=== PATIENT | female | born 1960 | race Caucasian/White ===

== ENCOUNTER → 2020-04-12 08:16 | Outpatient (CLI) | payer BC, SELFPAY ==
[2020-04-12 09:44] LABS: Coronavirus 19 IgG Antibody Negative (Negative); Coronavirus 19 IgM Antibody Negative (Negative)
== END ==
PROVIDERS: Visit Provider Internal Medicine Gastroenterology
DX: Z01.818 Encounter for other preprocedural examination (principal); Z20.822 Contact with and (suspected) exposure to COVID-19; Z13.810 Encounter for screening for upper gastrointestinal disorder; Z12.11 Encounter for screening for malignant neoplasm of colon
CPT/HCPCS: 36415; 86328

== ENCOUNTER 2020-04-13 10:20 | Day surgery (SDC) | payer BC, SELFPAY ==
[2020-04-05 12:06] VITALS: BMI 17.2
[2020-04-13 10:37] VITALS: BP 133/48; PULSE 100; RESP 16; TEMP 36.6; O2SAT 100
--- NOTE | 2020-04-13 11:17 | P.PCN_ITS ---
[facility] Procedure Note Procedure Note:: Upper Endoscopy Procedure Report: Esophagogastroduodenoscopy with cold biopsies Endoscopost: William Ortiz II, MD Referring Physician: Emmanuel Quan MD Date of Procedure: April 13, 2020 Equipment: Olympus GIF 180 standard upper endoscope Sedation: MAC sedation Indications: Mrs. Mckoy is a 59-year-old female with chronic GERD. She has had heartburn, reflux and some painful swallowing. She also reports some early satiety and infrequent nausea. She does take lansoprazole. This is her first E GD. Procedure: Prior to the procedure, a history and physical exam was performed, and patient's medications and allergies were reviewed. The risks, benefits and alternatives of the sedation and procedure were discussed with the patient. All questions were answered and informed consent was obtained. The patient was brought to the procedure room. Patient identification and proposed procedure were verified by the physician and the nurse. The patient was placed in a left lateral decubitus position and the scope was passed under direct vision. Throughout the procedure, the patient's blood pressure, pulse, and oxygen saturations were monitored continuously. The upper GI endoscopy was accomplished without difficulty. The patient tolerated the procedure well. Findings: The scope was passed directly into the upper esophagus and advanced to the third portion of the duodenum. The post bulbar duodenum and duodenal bulb were normal with normal mucosa and conniventes. There was no scalloping and no evidence of celiac disease. The scope was withdrawn through a normal duodenal bulb and pylorus into the stomach. There was bile reflux with moderate linear reactive gastropathy of the antrum. The remainder of the body and fundus of the stomach were grossly normal. Upon retroflexion there was no hiatal hernia. 2 biopsies were taken in the antrum and along the lesser curvature for histology to rule out gastritis and/or H pylori. There was a gastric fundic gland polyp that was removed via cold biopsy. The scope was then withdrawn into the esophagus. There was no evidence of reflux esophagitis, Murphy's or Schatzki's ring. There were tertiary contractions and evidence of moderate esophageal dysmotility. The remainder of the esophageal mucosa was normal. Impression: 1. Nonerosive GERD with moderate esophageal dysmotility 2. Bile reflux with linear reactive gastropathy 3. Gastric fundic gland polyps Plan: I will follow-up the biopsies. The patient does have functional GERD. This is driven by gas pressure gradients. We will discuss additional treatment options. I will proceed with diagnostic colonoscopy. I will discuss the findings with the patient and family.
[2020-04-13 11:38] VITALS: BP 92/54; PULSE 90; RESP 18; TEMP 36.2; O2SAT 98
--- NOTE | 2020-04-13 11:38 | P.PCN_ITS ---
[facility] Procedure Note Procedure Note:: Colonoscopy Procedure Report: Colonoscopy Endoscopist: William Ortiz II, MD Referring physician: Emmanuel Quan MD Date of Procedure: April 13, 2020 Equipment: Olympus 180 variable stiffness pediatric colonoscope Sedation: MAC sedation Indication: Mrs. Mckoy is a 59-year-old female who is here for diagnostic colonoscopy. She has had longstanding bowel irregularity. She has had constipation since childhood. Over the last couple of years she has had more trouble with incomplete bowel evacuation. She also reports right lower quadrant abdominal pain. She was initially told that this may be a right ovarian cyst or adnexal issue. Her ultrasound and gynecologic work-up were unremarkable. She did have a history of endometriosis but did not have any intra- abdominal/peritoneal scar tissue from this. She did go to the emergency department at [facility] in [place] and had a CAT scan showing fecal retention. She has had some increased bloating. Her last colonoscopy was 7 years ago (Dr. Sheikh) and a small polyp was removed. She reports no weight loss, rectal bleeding or family history of colon cancer. Procedure: Prior to the procedure, a history and physical exam was performed, and patient's medications and allergies were reviewed. The risks, benefits and alternatives of the sedation and procedure were discussed with the patient. All questions were answered and informed consent was obtained. The patient was brought to the procedure room. Patient identification and proposed procedure were verified by the physician and the nurse. The patient was placed in a left lateral decubitus position and the scope was passed under direct vision. Throughout the procedure, the patient's blood pressure, pulse, and oxygen saturations were monitored continuously. The colonoscopy was accomplished without difficulty. The patient tolerated the procedure well. Findings: On digital rectal examination there was normal rectal tone. There were no external hemorrhoids. The colonoscope was introduced through the anal canal to the rectum and advanced to the cecum. The ileocecal valve and appendiceal orifice were identified. The scope was advanced a short distance into the ileum which appeared grossly normal. The scope was then withdrawn into the colon. The cecum, ascending and transverse colon and mucosa were grossly normal. There was some angulation at the hepatic flexure syndrome suggestive of hepatic flexure syndrome. There were scattered diverticuli throughout the colon but more predominantly in the descending and sigmoid colon (LEFT colon). The rectum itself was normal. Upon retroflexion within the rectum there were grade 1 internal hemorrhoids. The preparation was excellent throughout with Eckley Preparation Score of 9. The cecal time was 12 minutes. Impression: 1. Pandiverticulosis 2. 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 Grade 1 internal hemorrhoids Plan: I will discussed the findings with the patient and family and recommend dietary measures and treatment options (promotility therapy (Zelnorm or Motegrity) versus fiber bowel regimen or both). The patient will not require screening/surveillance colonoscopy again for 10 years by ACS guidelines.
[2020-04-13 11:48] VITALS: BP 105/59; PULSE 91; RESP 18; O2SAT 97
[2020-04-13 12:00] VITALS: BP 94/57; PULSE 77; RESP 18; O2SAT 98
[2020-04-13 12:16] VITALS: BP 97/56; PULSE 78; RESP 18; O2SAT 99
[2020-04-13 12:40] VITALS: BP 96/55; PULSE 86; RESP 18; O2SAT 98
--- NOTE | 2020-04-13 15:59 | P.PN_ITS ---
[facility] Anesthesia Checklist - Patient Identification Patient Identification: Arm Band - Structural Data Admitted From: Home Planned Operative Procedure/s: egd colon Consent for Planned Operative Procedure(s) Verified: Yes Verified Documents: Surgical Consent - Anesthesia Plan Anesthesia Risk discussed: Yes Anesthesia Plan: Verified ASA Class: III Anesthesia Type: General [facility] History Medical History: Denies:: Cancer, Diabetes Mellitus Type 1, Diabetes Mellitus Type 2, Internal Pacemaker, MRSA, Seizures *Have you ever received a pneumonia vaccine?: No *Have you received a flu vaccine this season?: No Anesthesia experience/problems:: none Laterality Cases: Bilateral: Tonsillectomy Other Surgeries: No: Pacemaker Amputation: No Fractures: No - *Social History Last grade of school completed: Advanced degree Smoking Status: Never smoker Alcohol Intake: never Substance Use Type: denies use *Occupational Status:: employed Housing: house Household Members: spouse *Travel in the last 8 weeks: None Family Hx:: No significant family history, Cancer
== END 2020-04-13 12:43 | disposition home or self-care (01) ==
PROVIDERS: Visit Provider Internal Medicine Gastroenterology
PROC: 0DJ08ZZ Inspection of Upper Intestinal Tract, Via Natural or Artificial Opening Endoscopic (ICD-10-PCS; CPT 43235; principal; 2020-04-13 11:00)
DX: K21.9 Gastro-esophageal reflux disease without esophagitis (principal); K22.4 Dyskinesia of esophagus; K31.9 Disease of stomach and duodenum, unspecified; K31.7 Polyp of stomach and duodenum; K57.30 Diverticulosis of large intestine without perforation or abscess without bleeding; K59.89 Other specified functional intestinal disorders; K64.0 First degree hemorrhoids; Z88.0 Allergy status to penicillin; Z91.013 Allergy to seafood; Z79.899 Other long term (current) drug therapy
CPT/HCPCS: 43239; 45378